=== PATIENT | male | born 1960 | race Caucasian/White ===

== ENCOUNTER 2024-06-11 09:27 | Outpatient (CLI) | payer OTHER ==
[2024-06-11 10:50] LABS: #Basophils 0.03 10x3/uL (0.0-0.2); %Basophils 0.4 % (0.0-1.0); %Eosinophils 2.1 % (0.0-10.0); %Lymphocytes 34.2 % (21.0-51.0); %Neutrophils 55.2 % (42.0-75.0); Hematocrit 41.3 % (42.0-52.0); Hemoglobin 13.8 g/dL (14.0-18.0); Mean Corpuscular HGB CONC 33.4 g/dL (32.0-36.0); Mean Corpuscular Hemoglobin 30.7 pg (27.0-31.0); Mean Corpuscular Volume 91.8 fL (78.0-98.0); Mean Platelet Volume 10.3 fL (7.4-10.4); Platelet Count 266 10x3/uL (130-400); RBC Distribution Width 14.7 % (11.5-14.5)
[2024-06-11 11:11] LABS: INR-International Normal Ratio 1.1; Prothrombin Time 14.2 sec (12.0-14.7)
[2024-06-11 11:12] LABS: PTT 32.2 sec (22.9-36.1)
[2024-06-11 12:07] LABS: Anion Gap 13 mmol/L (10-20); BUN (Urea Nitrogen) 16 mg/dL (8.4-25.7); Calc. Creatinine Clearance 0 mL/min (70-130); Carbon Dioxide 22 mmol/L (23-31); Chloride 108 mmol/L (98-107); Estimated GFR 100; Glucose 135 mg/dL (80-115); Potassium 3.8 mmol/L (3.5-5.1); Sodium 139 mmol/L (136-145)
== END 2024-06-11 09:28 | disposition home or self-care (01) ==
LOC: LABBT 09:27
PROVIDERS: ATTEND Internal Medicine Cardiovascular Disease
DX: Z01.812 Encounter for preprocedural laboratory examination (principal); I48.0 Paroxysmal atrial fibrillation
CPT/HCPCS: 80048; 85025; 85610; 85730

== ENCOUNTER 2024-06-13 07:11 | Day surgery (SDC) | payer OTHER ==
[2024-06-11 09:37] VITALS: BMI 32.0
[2024-06-13] MEDS ORDERED: Heparin 25,000 units/D5W 500 ML ONE (07:19)
[2024-06-13] MEDS ORDERED: Protamine Sulfate 50 MG/5 ML VIAL ONE ×2 (07:19→12:12)
[2024-06-13] MEDS ORDERED: Heparin 10,000 UNITS/ 10 ML VIAL ONE (07:19)
[2024-06-13] MEDS ORDERED: Isoproterenol 0.2 MG/1 ML AMP ONE (07:19)
[2024-06-13] MEDS ORDERED: SUGAMMADEX SODIUM 200 MG/2 ML VIAL ONE (09:16)
[2024-06-13] MEDS ORDERED: fentaNYL 50 mcg/mL 1 mL Vial ONE (09:17)
[2024-06-13] MEDS ORDERED: PROPOFOL 20 ML ONE (09:17)
[2024-06-13] MEDS ORDERED: Dexamethasone 4 mg/ml Vial ONE (09:17)
[2024-06-13] MEDS ORDERED: Vasopressin 20 UNITS/ML VIAL ONE (09:17)
[2024-06-13] MEDS ORDERED: Rocuronium Bromide 10 MG/ML (10ML VIAL) ONE (09:17)
[2024-06-13] MEDS ORDERED: Midazolam HCl 2 mg/2 ml Vial ONE (09:17)
[2024-06-13] MEDS ORDERED: Ondansetron PF 4 MG/2 ML Vial ONE (09:17)
[2024-06-13] MEDS ORDERED: Glycopyrrolate 0.2 MG/ML 5 ML SYRINGE ONE (10:25)
[2024-06-13] MEDS ORDERED: ePHEDrine Sulfate 50 MG/10 ML VIAL ONE (10:25)
[2024-06-13] MEDS ORDERED: PHENYLEPHRINE-NS 100 MCG/ML 10 ML SYRINGE ONE ×2 (10:25)
== END 2024-06-13 14:21 | disposition home or self-care (01) ==
LOC: SDC 07:11
PROVIDERS: ATTEND Internal Medicine Cardiovascular Disease
PROC: 4A023FZ Measurement of Cardiac Rhythm, Percutaneous Approach (ICD-10-PCS; principal; 2024-06-13)
DX: I48.0 Paroxysmal atrial fibrillation (principal); I48.92 Unspecified atrial flutter; I35.1 Nonrheumatic aortic (valve) insufficiency; I10 Essential (primary) hypertension; E11.9 Type 2 diabetes mellitus without complications; E78.5 Hyperlipidemia, unspecified; Z87.891 Personal history of nicotine dependence; Z79.01 Long term (current) use of anticoagulants; Z79.02 Long term (current) use of antithrombotics/antiplatelets; Z79.82 Long term (current) use of aspirin; Z79.84 Long term (current) use of oral hypoglycemic drugs; Z79.899 Other long term (current) drug therapy; G47.33 Obstructive sleep apnea (adult) (pediatric)
CPT/HCPCS: 85347; 93005; 93010; 93623; 93656; 93657; C1730; C1732; C1733; C1759; C1760; C1766; C1769; C1894; J1100; J1644; J2250; J2405; J2704; J2720; J3010